=== PATIENT | female | born 1930 | race African-American/Black ===

== ENCOUNTER → 2020-10-16 | Outpatient (CLI) | payer OTHER, BC ==
[~2020-10-16] VITALS: Ht 165.1 cm; Wt 68.0 kg
[~2020-10-16] MED LIST: CARVEDILOL6.25 M1 PO; COZAAR 25 MG TA25 M1 PO; FLAXSEED OIL1000 MG PO; GLYBURIDE 2.52.5 M1 PO; GLYBURIDE 5 MG T5 M1 PO; LASIX 20 MG TAB20 MG PO; LIPITOR 20 MG T20 M1 PO; MECLIZINE HCL25 MG PO; SPIRONOLACTONE25 MG PO; STIOLTO RESPIMAT4 GM INH; TRAMADOL 50 MG50 MG PO; VITAMIN B-1100 M2 PO; VITAMIN C1000 MG PO; VITAMIN D3 COM1 EACH PO
[2020-10-16 14:06] VITALS: BP 126/66
--- NOTE | 2020-10-16 14:50 | NUR ---
Pain Clinic Assessment: 1. History of Osteoarthritis: LUMBAR SPINE History of Rheumatoid Arthritis: DENIES 2. Height: 5 ft. 5 in. 165.1 cm. Weight: 150.0 lb. oz. 68.040 kg. Patient's BMI: 25.0 3. Vital Signs: BP: 126/66 Pulse: 65 Resp: 16 Temp: 02 Sat: 100 ECG Mon: 4. Pain Intensity: 8 TO 10 5. Fall Risk: Dizziness: N Needs help standing or walking: N Fallen in the last 3 months: N Fall risk comments: 6. Patient on Blood Thinner: None 7. History of Hypertension: Y 8. Opioid Therapy greater than 6 weeks: N Opiate Contract Signed: 9. Risk Assessment Tool Provided: LOW-0 10. Functional Assessment Tool: 11. Recreational Drug Use: Never Drug Type: Tobacco Use: Never Smoker Tobacco Type: Amount or Packs/day: How Many Years: Alcohol Use: No Frequency: Quant:
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
== END ==
LOC: PAIN 08:02
PROVIDERS: ATTEND Anesthesiology Pain Medicine
DX: M54.5 Low back pain (principal); R10.2 Pelvic and perineal pain; G89.29 Other chronic pain; M48.061 Spinal stenosis, lumbar region without neurogenic claudication; M53.3 Sacrococcygeal disorders, not elsewhere classified

== ENCOUNTER → 2021-04-23 | Outpatient (CLI) | payer OTHER, BC ==
[~2021-04-23] VITALS: Ht 165.1 cm; Wt 62.1 kg
[2021-04-23 12:42] VITALS: BP 145/59
--- NOTE | 2021-04-23 12:47 | NUR ---
Pain Clinic Assessment: 1. History of Osteoarthritis: LUMBAR SPINE History of Rheumatoid Arthritis: DENIES 2. Height: 5 ft. 5 in. 165.1 cm. Weight: 137.0 lb. oz. 62.143 kg. Patient's BMI: 22.8 3. Vital Signs: BP: 145/59 Pulse: 65 Resp: 16 Temp: 02 Sat: 98 ECG Mon: 4. Pain Intensity: 9 5. Fall Risk: Dizziness: N Needs help standing or walking: N Fallen in the last 3 months: N Fall risk comments: 6. Patient on Blood Thinner: None 7. History of Hypertension: Y 8. Opioid Therapy greater than 6 weeks: N Opiate Contract Signed: 9. Risk Assessment Tool Provided: LOW-0 10. Functional Assessment Tool: 11. Recreational Drug Use: Never Drug Type: Tobacco Use: Never Smoker Tobacco Type: Amount or Packs/day: How Many Years: Alcohol Use: No Frequency: Quant:
--- NOTE | 2021-04-24 08:05 | HPC ---
[address] [address] PAIN MANAGEMENT CONSULTATION Name: OJ NAGY Room #: REG GLO Tamika#: [id number] Admission: 04/23/21 Attend Phys: Ricardo Funez DO Discharge: Date of : [birth year] Report #: [id number] THIS REPORT FOR: cc: Starla Hines MD,Ricardo Ramon MD, DO ~ cc: tSarla Hines MD DATE OF SERVICE: 04/23/2021 CHIEF COMPLAINT: Low back pain, bilateral upper buttock and posterolateral thigh pain. HISTORY OF PRESENT ILLNESS: As you know, the patient is a very pleasant 89-year-old female who was initially seen in our clinic in 10/2020 where she was diagnosed with bilateral sacroiliac joint pain secondary to previous spinal fusion from L3 through S1. The patient has been lost to followup visit since that time as she states her pain improved spontaneously. Unfortunately, a couple weeks ago, her pain began to reoccur and now she is describing pain from the lower back radiating all the way down the legs to the feet. She sought evaluation through her primary care physician who requested the patient return to trial a lumbar epidural injection under fluoroscopic guidance. The patient reports no injury or trauma that led to symptom development. She is placing current pain score at 9/10. She has not taken any medication that would preclude the patient from undergoing a lumbar epidural injection and there have been no changes in the patient's medication management that would preclude her from trialing an injection today. ALLERGIES: VITAMIN E, OXYCODONE, AND ACETAMINOPHEN. CURRENT MEDICATIONS: Spironolactone, tiotropium bromide, meclizine, furosemide, glyburide, ascorbic acid, flaxseed oil, thiamine, atorvastatin, carvedilol, tramadol, and losartan. SOCIAL HISTORY: Unchanged. She is a nonsmoker. Denies IV or illicit drug use. Denies any chronic alcohol use. 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 IMAGING: No new imaging available. PQRS: The patient has known arthritic lumbar spine and bilateral hips. No rheumatoid arthritis. She is placing pain today 03/15. She is not a fall risk, has not had a fall in the last 3 months. She is not on blood thinners, but is treated for hypertension. She is not on chronic opioids, has a low opiate addiction potential. Pain impact is 40/70, moderate interference with daily activities secondary to pain. [address] [address] PAIN MANAGEMENT CONSULTATION Name: OJ NAGY [id number] Admission: 04/23/21 Attend Phys: Ricardo Funez DO Discharge: Date of : [birth year] Report #: [id number] PHYSICAL EXAMINATION: VITAL SIGNS: Blood pressure 145/59, pulse 65, respiratory rate 16 and unlabored. The patient is 98% on room air. Height 5 feet 5 inches tall, weight 137 pounds, BMI calculated 22.8. GENERAL: Well-developed, well-nourished, well-hydrated 89-year-old female appearing stated age, pain is rated today 9/10. HEENT: Normocephalic, atraumatic. Pupils are round and responsive. She is wearing a mask in compliance with COVID-19 regulations. EXTREMITIES: Show no clubbing, no cyanosis. No appreciable edema. MUSCULOSKELETAL: Lower extremity strength is symmetrical, 5/5. Seated straight leg raising negative. Supine straight leg raising negative. Fabere's test negative. Modified Gaenslen is positive for axial low back pain. Gait is normal for the patient. Station is normal for the patient. Deep tendon reflexes equal and symmetrical. ASSESSMENT: 1. Low back pain. 2. Lumbar radicular symptoms. 3. Spinal stenosis of lumbar spine. 4. 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 6. Chronic intractable pain. PLAN: 1. The patient has returned today in followup visit per the request of her primary care physician to discuss the possibility of undergoing a lumbar epidural injection to address low back pain and bilateral lower extremity pain. Symptoms do correlate more to a lumbar radiculopathy secondary to central canal stenosis than her previous evaluation where her symptoms were located specifically over the SI joints bilaterally. The patient and I discussed the risks and the benefits of the requested lumbar epidural injection. These risks include but are not necessarily limited to bleeding, bruising, infection, worsening pain, no relief of pain, also risk of temporary or permanent muscle weakness, temporary or permanent nerve damage, possible paralysis, and . The patient states understood and wished to proceed. 2. No medication changes made at today's visit. The patient will continue current medical therapy as prior prescribed. 3. We plan to see the patient back in followup visit on an as-needed basis for the next in the series of lumbar epidural injections. We are hopeful the patient will see good and prolonged benefit with today's injection. PROCEDURE NOTE DESCRIPTION OF PROCEDURE: Lumbar epidural steroid injection under fluoroscopic guidance. [address] [address] PAIN MANAGEMENT CONSULTATION Name: OJ NAGY Room #: REG GLO [facility]#: [id number] Admission: 04/23/21 Attend Phys: Ricardo Funez DO Discharge: Date of : [birth year] Report #: [id number] After obtaining written consent, the patient was taken back to fluoroscopy suite, placed in prone position with pillow under abdomen to decrease lumbar lordosis. Skin overlying lumbosacral area then prepped and draped in aseptic fashion. Lumbar intervertebral spaces were identified by AP fluoroscopy. Skin and subcutaneous tissue overlying target site injection anesthetized with 3 mL of 1% lidocaine. A 20-gauge, 3-1/2-inch Tuohy needle was advanced under fluoroscopic guidance towards the epidural space using a right paramedian approach. Epidural space identified using loss of resistance to air technique. After negative aspiration for heme or cerebrospinal fluid, 1 mL of Omnipaque injected. Lumbar epidurogram was confirmed using both AP and lateral fluoroscopy. After negative aspiration for heme or cerebrospinal fluid, 5 mL of a solution containing 2 mL, 40 mg per mL, 80 mg total triamcinolone along with 3 mL of lidocaine 1% injected slowly. Needle retracted retirement, flushed with 1 mL of 1% lidocaine, then removed. Sterile bandage placed over injection site. No new motor deficits present in lower extremity following procedure. The patient tolerated the procedure well. Carefully escorted to recovery room in stable condition. No apparent complications. After meeting discharge criteria, the patient was discharged home. <ELECTRONICALLY SIGNED> By: Ricardo Funez DO 04/24/21 [id number] Ricardo Funez DO /nt
== END | disposition home or self-care (01) ==
LOC: PAIN 10:56
PROVIDERS: ATTEND Anesthesiology Pain Medicine
DX: M54.59 Other low back pain (principal); M54.16 Radiculopathy, lumbar region; M48.061 Spinal stenosis, lumbar region without neurogenic claudication; M53.3 Sacrococcygeal disorders, not elsewhere classified; G89.29 Other chronic pain; I10 Essential (primary) hypertension; Z98.890 Other specified postprocedural states; Z79.899 Other long term (current) drug therapy

== ENCOUNTER → 2021-05-07 | Outpatient (CLI) | payer OTHER, BC ==
[~2021-05-07] VITALS: Ht 162.6 cm; Wt 69.9 kg
[~2021-05-07] MED LIST changes: +NEURONTIN300 MG PO
[2021-05-07 10:44] VITALS: BP 124/63
--- NOTE | 2021-05-07 14:56 | HPC ---
[facility] [address] [place] [address] PAIN MANAGEMENT CONSULTATION Name: OJ NAGY Room #: REG GLO Tamika#: [id number] Admission: 05/07/21 Attend Phys: Ricardo Funez DO Discharge: Date of : [birth year] Report #: [id number] THIS REPORT FOR: cc: Starla Hines MD,Ricardo Ramon MD, DO ~ cc: Starla Hines MD DATE OF SERVICE: 05/07/2021 CHIEF COMPLAINT: Low back pain, bilateral buttock and posterolateral thigh pain. HISTORY OF PRESENT ILLNESS: As you know, the patient is a very pleasant 89-year-old female who was referred to our clinic for chronic axial back pain with radiation down both legs into the feet. 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 The patient underwent that injection on 04/23/2021. Unfortunately, she received no improvement in symptoms. She states not even transiently noted pain relief. It is noted in the chart that her pain prior to the epidural injection was 9/10. Just prior to discharge home that day, her pain was 0/10. She returns today in followup visit to discuss treatment options to address her pain that she now places at 9/10 again. She states her pain is constant, cramping and sharp, exacerbated with standing and walking, improves with lying and sitting down. She has suffered no known injury or trauma and no changes in medication management that would preclude the patient from trialing a repeat injection if deemed appropriate. ALLERGIES: VITAMIN E, OXYCODONE AND ACETAMINOPHEN. CURRENT MEDICATIONS: Spironolactone 25 mg per day, tiotropium bromide inhaled p.r.n., meclizine 25 mg 3 times a day, furosemide 20 mg once a day, glyburide 2.5 mg b.i.d., ascorbic acid 1000 mg once a day, flaxseed oil 1000 mg per day, thiamine 100 mg once a day, atorvastatin 20 mg per day, carvedilol 6.25 mg b.i.d., tramadol 50 mg p.r.n., losartan 25 mg once a day. SOCIAL HISTORY: The patient reports she is a nonsmoker. Denies IV or illicit drug use. Denies any chronic alcohol use. 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 IMAGING: No new imaging available. PQRS: The patient has known arthritic changes of the lumbar spine, bilateral hips and hands. No rheumatoid arthritis. She is placing pain intensity today at 9/10. She is a fall risk, but has not had a fall in the last 3 months. She is not on blood thinners, but is treated for hypertension. [place] [address] PAIN MANAGEMENT CONSULTATION Name: OJ NAGY Room #: REG [facility].#: [id number] Admission: 05/07/21 Attend Phys: Ricardo Funez DO Discharge: Date of : [birth year] Report #: [id number] opioids, has a low opioid addiction potential based on our assessment tool. Pain impact is 40/70, moderate interference of daily activities secondary to pain. PHYSICAL EXAM: VITAL SIGNS: Blood pressure 124/63, pulse is 94, respiratory rate 16 and unlabored. The patient is 98% on room air. Height 5 feet 4 inches tall, weight 154 pounds, BMI calculated 26.4. GENERAL: Well-developed, well-nourished, well-hydrated 89-year-old female appearing stated age, pain is rated today at around 9/10. HEENT: Normocephalic, atraumatic. Pupils are round. She is wearing a mask in compliance with COVID-19 regulations. Hearing is decreased bilaterally. EXTREMITIES: Show no clubbing, no cyanosis. No appreciable edema. MUSCULOSKELETAL: Lower extremity strength is symmetrical. Seated straight leg raising negative. Supine straight leg raising negative. Fabere's test is negative. Modified Gaenslen is positive for axial low back pain. Gait is normal. Stance is normal. There are well-healed surgical scars after a fusion. ASSESSMENT: 1. Chronic low back pain. 2. Lumbar radicular symptoms. 3. Spinal stenosis of lumbar spine. 4. 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 6. Chronic intractable pain. PLAN: 1. The patient has returned today in followup visit indicating no improvement with the lumbar epidural injection provided at the last visit. We are addressing the spinal stenosis at the level above the fusion. She did note improvement with the local anesthetic and she reported 9/10 prior to the procedure and 0/10 before our discharge home which would indicate that her symptoms are related to the area where the injection was provided, but given the lack of improvement with the epidural injection for any length of time beyond the local anesthetic would indicate that her symptoms will not be addressable with epidural steroid injections. We have discussed with the patient the other treatment options we have available. The following was discussed with the patient today. We discussed physical therapy, stretching exercises and core strengthening as a treatment approach, which will continue to provide strengthening, but will not provide much in the way of improvement in symptoms. We discussed medication changes that might be beneficial to address symptoms such as starting on any neuropathic medications such as amitriptyline, nortriptyline, Cymbalta, Lyrica or gabapentin. We discussed surgical options with the patient including a spinal cord stimulator as a possible treatment option and ultimately extension [facility] [address] [place] [address] PAIN MANAGEMENT CONSULTATION Name: OJ NAGY Room #: REG GLO [place]#: [id number] Admission: 05/07/21 Attend Phys: Ricardo Funez DO Discharge: Date of : [birth year] Report #: [id number] of the fusion to the level above her current fusion where the source of her symptoms now radiate. After reviewing risks and benefits of all proposed treatment options, the patient chose to make adjustments in medication management. 2. We will start the patient on gabapentin 300 mg dose 1 tab p.o. at bedtime for 3 nights. If no improvement in symptoms, no side effects, then increase to 600 mg p.o. at bedtime. If again no improvement in symptoms, no side effects, increase to 900 mg p.o. at bedtime. The patient was given #90 tablets to reach the titration level. I did advise the patient at any time she notes improvement in symptoms, stabilize at that dose and do not progress further. If side effects were noted, sleepiness, disorientation, confusion, mental slowing, reduce to the dose prior to those side effects and contact our clinic. 3. The patient states she has an appointment with Dr. Mcdonnell in the next week or two to discuss surgical options. I do feel that her symptoms are related now to the level above the fusion and given the lack of efficacy with the epidural injection, that would no longer be an option for treatment. Medication management might be beneficial and we have started the patient on neuropathic symptom management in hopes of improving pain, though the patient is considering surgical options. She will discuss that with Dr. Mcdonnell at their appointment. 4. We will see the patient back in followup visit on an as needed basis. We are hopeful the patient will see benefit with the neuropathic medications started today. <ELECTRONICALLY SIGNED> By: Ricardo Funez DO 05/07/21 [id number] Ricardo Funez DO /nt
== END ==
LOC: PAIN 07:03
PROVIDERS: ATTEND Anesthesiology Pain Medicine
DX: M48.061 Spinal stenosis, lumbar region without neurogenic claudication (principal); M54.16 Radiculopathy, lumbar region; M53.3 Sacrococcygeal disorders, not elsewhere classified; M96.1 Postlaminectomy syndrome, not elsewhere classified; M79.659 Pain in unspecified thigh; Z88.8 Allergy status to other drugs, medicaments and biological substances; Z79.899 Other long term (current) drug therapy